=== PATIENT | male | born 1975 | race African-American/Black ===

== ENCOUNTER → 2016-12-01 | Outpatient (CLI) | payer OTHER ==
[~2016-12-01] MED LIST: DICL100G7 TP; IOHEXOL 180 MG/ML 10 ML VIAL. ONE; methylPREDNISolone ACETATE 40 MG/ML VIAL. ONE; methylPREDNISolone ACETATE 80 MG/ML VIAL. ONE
--- NOTE | 2016-12-02 05:22 | PAIN ---
DATE OF SERVICE: 12/01/2016 DIAGNOSES: Lumbar radiculopathy with lumbar herniated disk, lumbar degenerative disk disease. HISTORY OF PRESENT ILLNESS: The patient is a 41-year-old male who returns for followup status post initial evaluation and preauthorization for lumbar epidural steroid injection. The patient returns today with pain in the low back as he had previously and in the right lower extremity. The patient reports no significant change, but has still same pain in the same region of the right back and right lower extremity. The patient reports it is sharp, alternating with tight, shooting, tingling radiating and also some dull pain as well. He rates as a 6 on a scale of 10 currently; it can be as high as a 9 with activity, standing, and walking for long periods. The patient is in the process of moving to a new location and has been packing things in the house, has been increasing his activity, this was exacerbating the pain to a fair extent. The patient reports no new motor or sensory deficits, no new bowel or bladder incontinence. Still feels better with sitting down or lying down. He is sleeping well through the night and it is not disturbing him from sleep. PHYSICAL EXAMINATION: VITAL SIGNS: Today, the patient's blood pressure is 115/66, pulse 71, respirations are 18, temperature is 98.6 degrees Fahrenheit, height is 5 feet 8 inches, weight is 177 pounds. GENERAL: The patient is awake, alert, oriented, appropriate, very pleasant demeanor. HEENT: Shows normocephalic and atraumatic. Extraocular movements are intact and symmetrical. Oral cavity shows mucous membranes moist and pink. Dentition is intact. NECK: Shows anterior throat supple without palpable lymphadenopathy noted. Swallow reflex is symmetrical. CHEST: Shows normal on inspection. Breath sounds are clear to auscultation bilaterally. HEART: Shows S1 and S2 clear. ABDOMEN: Soft, nontender, nondistended. No palpable organomegaly. No new rebound or guarding demonstrated. BACK: Shows spine grossly in the midline. Lumbar paraspinous muscle shows symmetrical on inspection. With palpation, it shows some [id number] tenderness with palpation in the bilateral inferior aspect of the paraspinous musculature, only diffusely without radiation. EXTREMITIES: Lower extremities showed deep tendon reflexes at 2+ in the patellar and 1+ tendo-calcaneus tendons and are equal. Motor exam is strong with 5/5 dorsiflexion, extension, quadriceps and hamstring flexion and are symmetrical. Options were discussed with the patient. The patient's old chart was reviewed as his current medication regimen and updated. Current review of systems updated today as well, and we will proceed with a lumbar epidural steroid injection today with fluoroscopic guidance. Risks were again discussed including but not limited to bleeding, infection, possibility of epidural hematoma, subsequent neurologic compromise, dural puncture, headaches, spinal cord and/or nerve damage, side effects of steroid medication and poor results regarding pain control. The patient understands and wishes to proceed. The patient will return to clinic in approximately 2 weeks for followup. He was counseled on his return appointment, activity level and side effects to be aware of. DIAGNOSES: Lumbar radiculopathy with lumbar herniated disk and lumbar degenerative disk disease. PROCEDURES: Lumbar epidural steroid injection in translaminar approach at the L4-L5 level using C-arm fluoroscopic guidance under sterile prep and drape using local anesthetic. MEDICATIONS INJECTED: Depo-Medrol 120 mg plus 10 mL of preservative-free normal saline and 2 mL of Isovue for contrast. CONDITION AT DISCHARGE: Stable. The patient tolerated the procedure well, had no complications. LUCIANO CASTRO MD DR: [email or web address]/jenna JOB#: [id number] / [id number]
== END | disposition home or self-care (01) ==
LOC: PNCL 13:43
PROVIDERS: ATTEND Anesthesiology
DX: M51.16 Intervertebral disc disorders with radiculopathy, lumbar region (principal)
CPT/HCPCS: 62323; J1030; J1040